=== PATIENT | male | born 1965 | race Caucasian/White ===

== ENCOUNTER 2019-05-02 08:33 | Day surgery (SDC) | payer OTHER ==
[~2019-05-02] VITALS: Ht 170.2 cm; Wt 96.4 kg
[~2019-05-02 08:33] MED LIST: ASPIRIN EC325 M1 PO; OMEPRAZOLE20 M1 PO; PRAVACHOL40 MG PO; TOPROL XL50 MG PO; ULTRAM50 MG PO; XANAX0.25 MG PO
[2019-05-02] MEDS ORDERED: ASPIRIN81 MG PO (09:16)
[2019-05-02] MEDS ORDERED: PAXIL10 MG PO (09:17)
[2019-05-02 09:21] VITALS: BP 122/72; Ht 170.2 cm; Wt 96.4 kg
--- NOTE | 2019-05-02 14:20 | NUR ---
PT DC INSTRUCTIONS REVIEWED AT THIS TIME, PT AND FAMILY VERBALIZE UNDERSTANDING. PT IV REMOVED AT THIS TIME, INTACT, NO REDNESS OR SWELLING NOTED AT SITE.
--- NOTE | 2019-05-02 14:26 | NUR ---
PT LEAVING OPS AT THIS TIME VIA WC, NAD NOTED.
--- NOTE | 2019-05-04 16:40 | OP ---
PATIENT NAME: DILLON DONAHUE MEDICAL RECORD: [id number] :61 LOCATION:D.OPS ADMISSION DATE: SURGEON: RAJEEV JOSEPH MD DATE OF OPERATION: 05/02/2019 PREOPERATIVE DIAGNOSIS: Desires screening colonoscopy. POSTOPERATIVE DIAGNOSES: Desires screening colonoscopy, with 1 sessile polyp 9 x 7 mm. PROCEDURES: 1. Total colonoscopy to cecum. 2. Hot biopsy forceps polypectomy times 1. SURGEON: Rajeev Joseph MD ENVIRONMENTAL CONSULTANT: None. BLOOD LOSS: Minimal. ANESTHESIA: IV sedation. COMPLICATIONS: None. The risks, possible complications, and alternatives to the procedure were explained to the patient. He elects to proceed. The discussion specifically included, but was not limited to, bleeding requiring emergency reoperation, endoscopic perforation, and possible need for colonoscopies in the future. ENDOSCOPIC COURSE: The patient was conveyed to the endoscopy suite electively on 05/02/2019. IV sedation was induced by the anesthesia staff. The patient was placed in the Kelly position. A digital rectal examination was performed. The prostate was smooth, symmetric, and without nodules. A colonoscope was inserted through the anus. It was easily advanced to the cecum. The prep was excellent. I slowly withdrew the endoscope. I irrigated and aspirated extensively. I dragged the folds. I utilized not only normal imaging, but also narrow band imaging. The pullback was greater than 18-minute pullback. One polyp was noted and it was removed in its entirety utilizing the hot biopsy forceps polypectomy technique. A retroflexed view was obtained in the rectum. I then unretroflexed the scope and removed it under direct vision. I will see the patient in my office in 2-3 weeks. Depending on the results of biopsy, he may be put on a surveillance colonoscopy regimen or if there is not an adenomatous component to the polyp, I would recommend that his next colonoscopy to take place in 10 years unless he develops new symptoms such as bleeding. TRANSINT:[id number] Voice Confirmation ID: [id number] DOCUMENT ID: [id number] OPERATIVE REPORT [id number] DILLON DONAHUE RAJEEV JOSEPH MD at 1640 CC: SHILOH TEJEDA [id number] DICTATION DATE: 05/02/19 1341 BAG FILLER: 05/02/19 1814 [facility] 05/02/19 [facility] [address] [id number]
== END 2019-05-02 14:26 | disposition home or self-care (01) ==
LOC: D.OPS 08:33
PROVIDERS: ATTEND Surgery
DX: Z12.11 Encounter for screening for malignant neoplasm of colon (principal); E78.00 Pure hypercholesterolemia, unspecified; F17.210 Nicotine dependence, cigarettes, uncomplicated; I25.10 Atherosclerotic heart disease of native coronary artery without angina pectoris

== ENCOUNTER → 2019-06-08 16:05 | Outpatient (CLI) | payer OTHER ==
[2019-05-02 09:21] VITALS: BMI 33.3
[~2019-06-08 16:05] MED LIST changes: +ASPIRIN81 MG PO; +PAXIL10 MG PO
[2019-06-08 17:15] LABS: CHOL - HDL RATIO 6.1 ratio (2.3-4.9); LDL-HDL RATIO 3.9 ratio (1.5-3.5)
== END | disposition home or self-care (01) ==
LOC: D.LABREF 16:05
PROVIDERS: ATTEND Internal Medicine Interventional Cardiology
DX: E78.5 Hyperlipidemia, unspecified (principal)